=== PATIENT | male | born 1995 | race Caucasian/White ===

== ENCOUNTER 2016-10-08 11:00 | Outpatient (CLI) | payer BC ==
--- NOTE | 2016-10-08 14:54 | DIAGNOSTIC IMAGING REPORT ---
PROCEDURE: XR UPPER GI WITH SBFT INDICATION: Intermittent cramping and abdominal pain and to our and diarrhea. TECHNIQUE: Double contrast study. Fluoroscopy time 5.4-minute 3098.10 mGy. Barium contrast material ingested and images acquired over these a 1 hour, interval. COMPARISON: Comparison is made abdominal ultrasound 10/06/2012. FINDINGS: Preliminary mobile application developer abdominal radiograph demonstrates mild to moderate stool in the colon. Small bowel pattern is normal. Moderate gastroesophageal reflux. Esophagus is otherwise normal. Stomach and duodenum are normal. Small bowel pattern is normal with contrast reaching the mid transverse colon in 1 hour. Terminal ileum is normal. IMPRESSION: 1. Moderate gastroesophageal reflux. 2. Otherwise negative upper GI and small bowel series. 3. Findings discussed with the patient.
--- NOTE | 2016-10-08 14:54 | DIAGNOSTIC IMAGING REPORT ---
PROCEDURE: XR UPPER GI WITH SBFT INDICATION: Intermittent cramping and abdominal pain and to our and diarrhea. TECHNIQUE: Double contrast study. Fluoroscopy time 5.4-minute 3098.10 mGy. Barium contrast material ingested and images acquired over these a 1 hour, interval. COMPARISON: Comparison is made abdominal ultrasound 10/06/2012. FINDINGS: Preliminary electronic prepress operator abdominal radiograph demonstrates mild to moderate stool in the colon. Small bowel pattern is normal. Moderate gastroesophageal reflux. Esophagus is otherwise normal. Stomach and duodenum are normal. Small bowel pattern is normal with contrast reaching the mid transverse colon in 1 hour. Terminal ileum is normal. IMPRESSION: 1. Moderate gastroesophageal reflux. 2. Otherwise negative upper GI and small bowel series. 3. Findings discussed with the patient.
== END 2016-10-08 23:00 | disposition home or self-care (01) ==
LOC: XR SRH 11:00
DX: R10.9 Unspecified abdominal pain (principal); K21.9 Gastro-esophageal reflux disease without esophagitis

== ENCOUNTER 2016-10-22 07:03 | Day surgery (SDC) | payer BC ==
[~2016-10-22] VITALS: Ht 172.7 cm; Wt 75.2 kg
--- NOTE | 2016-10-22 09:51 | Provider's Discharge Care Plan ---
Problem, Goal, Plan Problem List 1. S/P colonoscopy Goals: Diagnostic testing, Screening Instructions: Follow up as directed
--- NOTE | 2016-10-22 09:51 | Provider's Discharge Care Plan ---
Problem, Goal, Plan Problem List 1. S/P colonoscopy Goals: Diagnostic testing, Screening Instructions: Follow up as directed
--- NOTE | 2016-10-22 09:58 | Operative Report ---
Operative Report Date of Surgery: 10/22/16 Preoperate Diagnosis: chronic abdominal pain etiology undetermined Postoperative Diagnosis: normal terminal ileum, normal colonoscopy Surgeon: Jaziel Cam MD Pediatric Critical Care Nurse Surgeon: none Procedure Performed: Heath- ileoscopy with biopsies of the terminal ileum mucosa. Anesthesia: Total intravenous anesthesia Indications: 21-year-old male with long-standing history of lower abdominal pain. Recent upper GI series small bowel follow-through indicates he has moderate gastroesophageal reflux but the small bowel is normal. Patient is scheduled for colonoscopy to rule out colonic and terminal ileum pathology as a source of his abdominal pain Patient is quite anxious and probably would be best served with total venous anesthesia for the procedure. FINDINGS: Normal appearing terminal ileum and cecum and ascending transverse descending colon and sigmoid colon and rectal wall. No evidence of inflammatory changes. The terminal ileum was biopsied extensively. Surgical Technique: Patient was brought to the operating room. Patient was placed in the left lateral decubitus position. Patient was administered TIVA by anesthesia. Once anesthesia had taken effect digital rectal examination was performed. No masses or stenosis was appreciated. This was then followed by the passage of a fiberoptic video flexible Olympus colonoscope. The scope was then passed without difficulty and the cecum and into the terminal ileum which were both visualized. After intubation of the terminal ileum and biopsies were obtained. The cecum was identified by anatomical landmarks and anterior abdominal wall ballottement. On withdrawing the scope the aforementioned findings were noted. The scope was then retroflexed and a good view of the rectal wall obtained. The scope was then completely withdrawn. Patient tolerated procedure well. Patient was transferred to the recovery room in stable condition. There were no intraoperative or anesthetic complications.
[2016-10-22 11:49] VITALS: BP 116/62
== END 2016-10-22 11:30 | disposition home or self-care (01) ==
LOC: OR SRH 07:03 → SCU SRH 07:04 → OR SRH 09:00
PROVIDERS: Specialist
PROC: 0DBB8ZX Excision of Ileum, Via Natural or Artificial Opening Endoscopic, Diagnostic (ICD-10-PCS; principal; 2016-10-22 09:00)
DX: R10.30 Lower abdominal pain, unspecified (principal)
CPT/HCPCS: 29229; 29240; 50004; 60001; 82944; 83526